=== PATIENT | male | born 1950 | race Caucasian/White ===

== ENCOUNTER 2021-09-24 09:47 | Outpatient (CLI) | payer MEDICARE, MEDICAID | END 2021-09-24 09:48 | disposition home or self-care (01) | LOC: CSHWCC 09:47 | PROVIDERS: ATTEND Nurse Practitioner Family | DX: I70.261 Atherosclerosis of native arteries of extremities with gangrene, right leg (principal); D50.9 Iron deficiency anemia, unspecified; D75.82 Heparin induced thrombocytopenia (HIT); E78.2 Mixed hyperlipidemia; I11.0 Hypertensive heart disease with heart failure; I50.22 Chronic systolic (congestive) heart failure; I50.32 Chronic diastolic (congestive) heart failure; I70.25 Atherosclerosis of native arteries of other extremities with ulceration; L97.119 Non-pressure chronic ulcer of right thigh with unspecified severity; L97.819 Non-pressure chronic ulcer of other part of right lower leg with unspecified severity; I70.262 Atherosclerosis of native arteries of extremities with gangrene, left leg; L97.829 Non-pressure chronic ulcer of other part of left lower leg with unspecified severity; J44.9 Chronic obstructive pulmonary disease, unspecified; Z72.0 Tobacco use; Z89.611 Acquired absence of right leg above knee; Z89.612 Acquired absence of left leg above knee | CPT/HCPCS: 97139; G0463; 99203 ==